=== PATIENT | female | born 1995 | race African-American/Black ===

== ENCOUNTER 2020-12-13 12:44 | Emergency (ER) | payer OTHER, SELFPAY ==
--- NOTE | 2020-12-13 12:45 | ED.WOUNDLAC ---
HPI - Wound/Laceration General Chief Complaint: Wound/Laceration Stated Complaint: R HAND LACERATION Time Seen by Provider: 12/13/20 12:45 Source: patient and RN notes reviewed History of Present Illness HPI narrative: Patient is a 25-year-old female who presents the urgent care with complaints of a right hand laceration. Patient states that it happened just prior to arrival while trying to cut frozen fruit . Patient states that she is right-hand dominant. Patient denies any other injuries or acute complaints. No acute distress noted. Patient aware of the plan of care. Some parts of this dictation were generated by voice recognition software and may contain typographical and/or grammatical inaccuracies. Related Data Home Medications Medication Instructions Recorded Confirmed No Home Medications 12/13/20 12/13/20 Allergies Allergy/AdvReac Type Severity Reaction Status Date / Time No Known Allergies Allergy Unverified 05/22/16 09:52 Review of Systems Review of Systems: Narrative: CONSTITUTIONAL: Denies fever, chills, or sweats. EYES: Denies visual changes, redness, or discharge. ENT: Denies rhinorrhea, congestion, sore throat, or otalgia. CARDIOVASCULAR: Denies chest pain, palpitations, or edema. RESPIRATORY: Denies cough or dyspnea. GASTROINTESTINAL: Denies abdominal pain, nausea, vomiting, or diarrhea. GENITOURINARY: Denies dysuria or hematuria. SKIN: Reports of a laceration to the right hand. MUSCULOSKELETAL: Denies back pain, joint pain, or myalgia. NEUROLOGIC: Denies headache, numbness, or weakness. All other systems reviewed are negative, except as documented in HPI. PMFSH Comments At the time of my signature, I reviewed and agree with the nursing past medical, surgical, social, and family history. There is no relevant family history pertinent to the patient complaint. Exam Narrative: Exam Narrative: GENERAL: This is a well-nourished, well-developed patient, in no apparent distress. HEAD: normocephalic, atraumatic. EYES: PERRL. Sclera clear/white. Vision is grossly intact. EARS: External ears normal NOSE: External nose normal with no obvious nasal discharge, nares without redness, no rhinorrhea. THROAT: Mucous membranes moist NECK: Neck supple SKIN: 5 cm linear laceration noted to the ulnar palmar aspect of the right hand NEURO: awake, alert, and oriented to person, place and time. There were no obvious focal neurologic abnormalities. EXTREMITIES: Positive strong right radial pulse with capillary refill less than 2 seconds. No complaints of tingling/numbness to the right upper extremity. Course Vital Signs Vital signs: Vital Signs Temperature 99.1 F 12/13/20 12:51 Pulse Rate 63 12/13/20 12:51 Respiratory Rate 16 12/13/20 12:51 Blood Pressure 118/79 12/13/20 12:51 Pulse Oximetry 100 12/13/20 12:51 Temperature 99.1 F 12/13/20 12:51 Pulse Rate 63 12/13/20 12:51 Respiratory Rate 16 12/13/20 12:51 Blood Pressure 118/79 12/13/20 12:51 Pulse Oximetry 100 12/13/20 12:51 Reviewed Procedures Laceration Laceration 1: Site: hand Side (If applicable): right Size (cm): 5 Description: linear Local Anesthetic: lidocaine 1% Pre-repair: irrigated extensively (Technique care normal saline) ====== Skin Level ====== Skin layer closed with: vicryl and steri strips Size (cm): 5-0 Number of sutures: 6 ====== Subcutaneous Layer ====== ====== Muscle Layer ====== ====== Tendon Layer ====== Dressin cm linear laceration to the ulnar palmar aspect of the right hand. Cleansed/irrigated with 40ml Technicare and normal saline. Anesthetic of 1ml of 1% lidocaine. 6 Ethilon 5-0 sutures placed. Wound approximated. 4 Steri-Strips placed. Procedure successful. Patient tolerated well. Range of motion to right upper extremity within normal limits pre and post procedure. MDM - Wound/Laceration
[2020-12-13 12:51] VITALS: BP 118/79; PULSE 63; RESP 16; TEMP 37.3; O2SAT 100
== END 2020-12-13 13:39 | disposition home or self-care (01) ==
PROVIDERS: Emergency Provider Nurse Practitioner Family
DX: S61.411A Laceration without foreign body of right hand, initial encounter (principal); X58.XXXA Exposure to other specified factors, initial encounter; Y93.G1 Activity, food preparation and clean up
CPT/HCPCS: 12002; 99202; G0463